=== PATIENT | male | born 1980 | race Caucasian/White ===

== ENCOUNTER 2016-08-02 21:15 | Emergency (ER) | payer SELFPAY ==
[~2016-08-02] VITALS: Ht 172.7 cm; Wt 54.0 kg
[2016-08-02 21:17] VITALS: BP 139/87; PULSE 101; RESP 18; TEMP 97.8; O2SAT 98
[2016-08-02] MEDS ORDERED: traMADol HCL 50 MG TAB PO ONE (22:00)
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
[2016-08-02] MEDS ORDERED: TRAM50TA PO (23:24)
== END 2016-08-02 23:48 | disposition home or self-care (01) ==
LOC: NEPB 21:15
DX: S20.219A Contusion of unspecified front wall of thorax, initial encounter (principal); V49.40XA Driver injured in collision with unspecified motor vehicles in traffic accident, initial encounter; Y92.410 Unspecified street and highway as the place of occurrence of the external cause; Z72.0 Tobacco use
CPT/HCPCS: 71020; 94150; 99284

== ENCOUNTER 2017-07-14 09:58 | Emergency (ER) | payer SELFPAY ==
[~2017-07-14] VITALS: Ht 162.6 cm; Wt 65.0 kg
[~2017-07-14 09:58] MED LIST: TRAM50TA PO
[2017-07-14 10:16] VITALS: BP 152/95; PULSE 74; RESP 15; TEMP 98; O2SAT 100
[2017-07-14] MEDS ORDERED: traMADol HCL 50 MG TAB PO ONE (13:00)
[2017-07-14] MEDS ORDERED: SODIUM CHLORIDE 0.9% FLUSH 10 ML FLUSH IV FLUSH PRN (13:00)
[2017-07-14 13:05] VITALS: O2SAT 97
[2017-07-14] MEDS ORDERED: SODIUM CHLOR 0.9% 1000 ML INJ 1,000 ML IV SCH (13:10)
--- NOTE | 2017-07-14 13:10 | PD ---
HPI Chief Complaint: Flank/Kidney Pain Time Seen by Provider: 12:39 Travel History International Travel<30 days: No Contact w/Intl Traveler<30days: No Traveled to known affect area: No History of Present Illness HPI 36-year-old male presents to the emergency Department with complaint of left flank pain radiating to his left upper quadrant 2 days. Severe pain comes and goes. It does have a constant pain that stays. Has history of kidney stones. Reports nausea without vomiting. Denies fevers. Denies dysuria, hematuria. Denies diarrhea or change in stool. Rates pain 10/18. Describes it as stabbing. Has taken Excedrin and tried laying down for symptom management. No known aggravating or relieving factors. Occasional alcohol use. Denies illicit drug use. Reports tobacco use. Denies other significant past medical history, other than kidney stones. Allergies to ibuprofen, ciprofloxacin, naproxen. No asa-care provider. Has no medical complaints. No other modifying factors or associated signs and symptoms. PFSH Past Medical History Medical History: Denies Significant Hx Diminished Hearing: No Past Surgical History Surgical History: No Previous Surgery Social History Alcohol Use: Yes (Occasionally) Tobacco Use: Yes (5-6 cigarettes/day) Substance Use: No Allergies-Medications (Allergen,Severity, Reaction): Coded Allergies: diclofenac (Unverified Allergy, Intermediate, SWELLING OF FACE, 07/14/17) etodolac (Unverified Allergy, Intermediate, SWELLING OF FACE, 07/14/17) flurbiprofen (Unverified Allergy, Intermediate, SWELLING OF FACE, 07/14/17) ibuprofen (Unverified Allergy, Intermediate, SWELLING OF FACE, 07/14/17) indomethacin (Unverified Allergy, Intermediate, SWELLING OF FACE, 07/14/17) ketoprofen (Unverified Allergy, Intermediate, SWELLING OF FACE, 07/14/17) ketorolac (Unverified Allergy, Intermediate, SWELLING OF FACE, 07/14/17) naproxen (Unverified Allergy, Intermediate, SWELLING OF FACE, 07/14/17) oxaprozin (Unverified Allergy, Intermediate, SWELLING OF FACE, 07/14/17) ciprofloxacin (Unverified Allergy, Mild, RASH, 07/14/17) Reported Meds & Prescriptions Reported Meds & Active Scripts Active No Active Prescriptions or Reported Medications Review of Systems Except as stated in HPI: all other systems reviewed are Neg Physical Exam Narrative GENERAL: Well-nourished, well-developed occasion male patient, in no acute distress SKIN: Warm and dry. No rash. HEAD: Atraumatic. Normocephalic. EYES: Pupils equal and round. No scleral icterus. No injection or drainage. ENT: Mucosa pink and moist. NECK: Trachea midline. CARDIOVASCULAR: Regular rate and rhythm. No murmur appreciated. RESPIRATORY: No accessory muscle use. Clear to auscultation. Breath sounds equal bilaterally. GASTROINTESTINAL: Abdomen soft, LUQ tenderness on palpation, nondistended. Hepatic and splenic margins not palpable. Bowel sounds are active 4 quadrants. Bladder nontender and nondistended. MUSCULOSKELETAL: No obvious deformities. No clubbing. No cyanosis. No edema. BACK: Left CVA tenderness NEUROLOGICAL: Awake and alert. Oriented 3. No obvious cranial nerve deficits. Motor grossly within normal limits. Normal speech. Moves all extremities. 5/5 strength to all extremities. PSYCHIATRIC: Appropriate mood and affect; insight and judgment normal. Data Data Last Documented VS Vital Signs Date Time Temp Pulse Resp B/P (MAP) Pulse Ox O2 Delivery O2 Flow Rate FiO2 07/14/17 13:05 97 Room Air 07/14/17 10:16 98.0 74 15 152/95 (114) Orders Orders Urinalysis - C+S If Indicated (07/14/17 10:58) Complete Blood Count With Diff (07/14/17 12:49) Comprehensive Metabolic Panel (07/14/17 12:49) Lipase (07/14/17 12:49) Ct Abd/Pel W/O Iv Contrast (07/14/17 12:49) Iv Access Insert/Monitor (07/14/17 12:49) Ecg Monitoring (07/14/17 12:49) Oximetry (07/14/17 12:49) Sodium Chloride 0.9% Flush (Ns Flush) (07/14/17 13:00) Tramadol (Ultram) (07/14/17 13:00) Sodium Chlor 0.9% 1000 Ml Inj (Ns 1000 M (07/14/17 13:10) Labs Laboratory Tests Test 07/14/17 12:10 07/14/17 13:00 Urine Color LIGHT-YELLOW Urine Turbidity CLEAR Urine pH 5.5 Urine Specific [place] 1.009 Urine Protein NEG mg/dL Urine Glucose (UA) NEG mg/dL Urine Ketones NEG mg/dL Urine Occult Blood NEG Urine Nitrite NEG Urine Bilirubin NEG Urine Urobilinogen LESS THAN 2.0 MG/DL Urine Leukocyte Esterase NEG Urine RBC 1 /hpf Urine WBC LESS THAN 1 /hpf Urine Squamous Epithelial Cells <1 /hpf Urine Mucus FEW /lpf Microscopic Urinalysis Comment CULT NOT INDICATED White Blood Count 11.9 TH/MM3 Red Blood Count 4.95 MIL/MM3 Hemoglobin 15.4 GM/DL Hematocrit 45.4 % Mean Corpuscular Volume 91.6 FL Mean Corpuscular Hemoglobin 31.1 PG Mean Corpuscular Hemoglobin Concent 34.0 % Red Cell Distribution Width 14.2 % Platelet Count 280 TH/MM3 Mean Platelet Volume 7.5 FL Neutrophils (%) (Auto) 62.3 % Lymphocytes (%) (Auto) 28.5 % Monocytes (%) (Auto) 6.8 % Eosinophils (%) (Auto) 1.6 % Basophils (%) (Auto) 0.8 % Neutrophils # (Auto) 7.4 TH/MM3 Lymphocytes # (Auto) 3.4 TH/MM3 Monocytes # (Auto) 0.8 TH/MM3 Eosinophils # (Auto) 0.2 TH/MM3 Basophils # (Auto) 0.1 TH/MM3 CBC Comment DIFF FINAL Differential Comment Blood Urea Nitrogen 11 MG/DL Creatinine 0.92 MG/DL Random Glucose 115 MG/DL Total Protein 8.1 GM/DL Albumin 4.2 GM/DL Calcium Level 8.9 MG/DL Alkaline Phosphatase 106 U/L Aspartate Amino Transf (AST/SGOT) 20 U/L Alanine Aminotransferase (ALT/SGPT) 19 U/L Total Bilirubin 0.3 MG/DL Sodium Level 138 MEQ/L Potassium Level 4.0 MEQ/L Chloride Level 105 MEQ/L Carbon Dioxide Level 28.0 MEQ/L Anion Gap 5 MEQ/L Estimat Glomerular Filtration Rate 93 ML/MIN Lipase 63 U/L MDM Medical Decision Making Medical Screen Exam Complete: Yes Emergency Medical Condition: Yes Medical Record Reviewed: Yes Differential Diagnosis Cholelithiasis, hydronephrosis, pancreatitis Narrative Course 36-year-old male with left flank pain. Has history of kidney stones. Patient is afebrile nontoxic pain. Reports nausea without vomiting. Denies fevers. CBC, CMP, lipase, urinalysis, IV, normal saline bolus ordered. Patient has severe allergy to ibuprofen. He does not want any IV pain medication. He did agree to a tramadol. Tramadol ordered. 1422: CBC, CMP, lipase, urinalysis unremarkable. CT abdomen/pelvis concludes: Abdomen/Pelvis CT 07/14/17 1249 Signed Impressions: Service Date/Time: Friday, July 14, 2017 13:06 - CONCLUSION: 1. No evidence of hydronephrosis or renal stones. 2. Splenic granulomas. 3. Otherwise, unremarkable examination for patient's age. Patrice Ulloa MD Patient provided a copy of the CT report. Instructed patient to follow up with primary care provider. Patient verbalizes understanding and agreement with treatment plan. Patient is medically cleared and stable for discharge. Discussed reasons to return to the emergency department. Patient agrees with treatment plan. The patients vital signs are stable and the patient is stable for outpatient follow-up and treatment. Patient discharged home, stable and in no acute distress. Diagnosis Primary Impression: Left flank pain Referrals: [facility] Primary Care Physician Patient Instructions: Flank Pain (ED), General Instructions Additional Instructions: Tylenol as directed and as needed for pain Ice/heat to affected area to reduce pain Avoid aggravating activity; increase activity as tolerated Follow-up with primary care provider Return to the emergency department immediately with worsening of symptoms Med/Other Pt SpecificInfo: No Change to Meds, No Meds Exist/No RX given Scripts No Active Prescriptions or Reported Meds Disposition: 01 DISCHARGE HOME Condition: Stable Winter Anne Jul 14, 2017 13:10
[2017-07-14 13:16] LABS: BILIRUBIN, URINE NEG (NEG); BLOOD, URINE NEG (NEG); GLUCOSE,URINE NEG (NEG); KETONE, URINE NEG (NEG); MUCUS URINE FEW /lpf (OCC); NITRITE,URINE NEG (NEG); PH, URINE 5.5 (5.0-8.5); SQUAMOUS EPITHELIAL CELL URINE <1 /hpf (0-5); URINE COLOR LIGHT-YELLOW (YELLW/STRAW); URINE LEUKOCYTE ESTERASE NEG (NEG)
--- NOTE | 2017-07-14 13:29 | RADRPT ---
EXAM DATE/TIME: 07/14/2017 13:06 [facility] COMPARISON: No previous studies available for comparison. INDICATIONS : Left flank pain ORAL CONTRAST: No oral contrast ingested. RADIATION DOSE: 7.06 CTDIvol (mGy) MEDICAL HISTORY : None SURGICAL HISTORY : None. ENCOUNTER: Initial ACUITY: 1 day PAIN SCALE: 6/10 LOCATION: Left lower quadrant TECHNIQUE: Volumetric scanning of the abdomen and pelvis was performed. Using automated exposure control and ad justment of the mA and/or kV according to patient size, radiation dose was kept as low as reasonably achievable to obtain optimal diagnostic quality images. DICOM format image data is available electro nically for review and comparison. FINDINGS: LOWER LUNGS: The visualized lower lungs are clear. LIVER: Homogeneous density without lesion. There is no dilation of the biliary tree. No calcified gallston es. SPLEEN: Normal size without lesion. Splenic granulomas. PANCREAS: Within normal limits. KIDNEYS: Normal in size and shape. There is no mass, stone, or hydronephrosis. The ureters are nondilated. ADRENAL GLANDS: Within normal limits. VASCULAR: There is no aortic aneurysm. BOWEL/MESENTERY: The stomach, small bowel, and colon demonstrate no acute abnormality. There is no free intraperitone al air or fluid. No inflammatory changes. ABDOMINAL WALL: Within normal limits. RETROPERITONEUM: There is no lymphadenopathy. BLADDER: No wall thickening or mass. No calcifications REPRODUCTIVE: Within normal limits. INGUINAL: There is no lymphadenopathy or hernia. MUSCULOSKELETAL: Within normal limits for patient age. CONCLUSION: 1. No evidence of hydronephrosis or renal stones. 2. Splenic granulomas. 3. Otherwise, unremarkable examination for patient's age. Patrice Ulloa MD on July 14, 2017 at 13:26 Board Certified Radiologist. This report was verified electronically.
[2017-07-14 13:38] LABS: AUTOMATED NEUTROPHIL # 7.4 TH/MM3 (1.8-7.7); BASOPHIL # 0.1 TH/MM3 (0-0.2); BASOPHIL % 0.8 % (0.0-2.0); EOSINOPHIL # 0.2 TH/MM3 (0-0.4); EOSINOPHIL % 1.6 % (0.0-4.0); HEMATOCRIT 45.4 % (39.0-51.0); HEMOGLOBIN 15.4 GM/DL (13.0-17.0); LYMPH % 28.5 % (9.0-44.0); LYMPHOCYTE # 3.4 TH/MM3 (1.0-4.8); MEAN CELL VOLUME 91.6 FL (80.0-100.0); MEAN CORPUSCULAR HEMOGLOBIN 31.1 PG (27.0-34.0); MEAN PLATELET VOLUME 7.5 FL (7.0-11.0); MONO % 6.8 % (0.0-8.0); MONOCYTE # 0.8 TH/MM3 (0-0.9); NEUT % 62.3 % (16.0-70.0); PLATELET COUNT 280 TH/MM3 (150-450); RED BLOOD COUNT 4.95 MIL/MM3 (4.50-5.90); RED CELL DISTRIBUTION WIDTH 14.2 % (11.6-17.2); WHITE BLOOD COUNT 11.9 TH/MM3 (4.0-11.0)
[2017-07-14 13:56] LABS: ALBUMIN 4.2 GM/DL (3.4-5.0); ALT (GPT) 19 U/L (12-78); AST (GOT) 20 U/L (15-37); BLOOD UREA NITROGEN 11 MG/DL (7-18); CALCIUM 8.9 MG/DL (8.5-10.1); CHLORIDE 105 MEQ/L (98-107); CREATININE 0.92 MG/DL (0.60-1.30); GLOMERULAR FILTRATION RATE 93 ML/MIN (>89); GLUCOSE,RANDOM 115 MG/DL (74-106); SODIUM (NA) 138 MEQ/L (136-145)
[2017-07-14 13:58] LABS: ALKALINE PHOSPHATASE 106 U/L (45-117); TOTAL BILIRUBIN ADULT 0.3 MG/DL (0.2-1.0); TOTAL PROTEIN 8.1 GM/DL (6.4-8.2)
== END 2017-07-14 15:13 | disposition home or self-care (01) ==
LOC: NEPD 09:58
DX: R10.9 Unspecified abdominal pain (principal); F17.210 Nicotine dependence, cigarettes, uncomplicated
CPT/HCPCS: 74176; 80053; 81001; 83690; 85025; 99284; J7030